=== PATIENT | female | born 1990 | race African-American/Black ===

== ENCOUNTER 2020-05-06 19:07 | Emergency (ER) | payer OTHER ==
[~2020-05-06] VITALS: Ht 157.5 cm; Wt 72.7 kg
[2020-05-06] MEDS ORDERED: FLUT9.9S16 NASAL (19:26)
[2020-05-06] MEDS ORDERED: CETI5TAB12 PO (19:26)
[2020-05-06 20:36] VITALS: BP 141/78
== END 2020-05-06 20:38 | disposition home or self-care (01) ==
LOC: EMS 19:08
DX: M25.531 Pain in right wrist (principal); V89.2XXA Person injured in unspecified motor-vehicle accident, traffic, initial encounter; Y93.89 Activity, other specified; Y92.488 Other paved roadways as the place of occurrence of the external cause; Y99.8 Other external cause status

== ENCOUNTER 2020-07-01 17:31 | Emergency (ER) | payer OTHER ==
[~2020-07-01] VITALS: Ht 160 cm; Wt 59.1 kg
[2020-07-01] MEDS ORDERED: IBUP-1506 PO (17:44)
[2020-07-01] MEDS ORDERED: ACETAMINOPHEN 325 MG TABLET PO ONE (20:00)
[2020-07-01] MEDS ORDERED: PROCHLORPERAZINE EDISYLATE 5 MG/ML 2 ML VIAL IVP ONE (20:00)
[2020-07-01] MEDS ORDERED: DiphenhydrAMINE HCL 50 MG/ML VIAL IVP ONE (20:00)
[2020-07-01] MEDS ORDERED: SODIUM CHLORIDE 0.9% 1,000 ML IV ONE (20:00)
[2020-07-01] MEDS ORDERED: KETOROLAC TROMETHAMINE 30 MG/ML VIAL IVP ONE (20:45)
[2020-07-01 21:12] VITALS: BP 128/81
== END 2020-07-01 21:15 | disposition home or self-care (01) ==
LOC: EMS 17:37
DX: G43.909 Migraine, unspecified, not intractable, without status migrainosus (principal)
CPT/HCPCS: 81025; 96361; 96374; 96375; 99284; J0780; J1200; J7030